=== PATIENT | female | born 2000 | race Two or more races ===

== ENCOUNTER 2023-10-01 16:43 | Emergency (ER) | payer OTHER ==
[~2023-10-01] VITALS: Ht 154.9 cm; Wt 66.7 kg
[2023-10-01] MEDS ORDERED: SPIRONOLACTONE100 MG (17:02)
[2023-10-01] MEDS ORDERED: LIDOCAINE HCL 100 MG/10ML VIAL PERCUT ONE (17:30)
[2023-10-01] MEDS ORDERED: ACETAMINOPHEN WITH CODEINE 1 UDTAB TABLET PO ONE (17:30)
== END 2023-10-01 18:20 | disposition home or self-care (01) ==
LOC: ER 16:43
DX: S61.304A Unspecified open wound of right ring finger with damage to nail, initial encounter (principal); X58.XXXA Exposure to other specified factors, initial encounter; Y93.89 Activity, other specified; Y92.89 Other specified places as the place of occurrence of the external cause; Y99.8 Other external cause status